=== PATIENT | male | born 1955 | race Caucasian/White ===

== ENCOUNTER 2018-09-09 20:38 | Emergency (ER) | payer OTHER ==
[~2018-09-09] VITALS: Ht 165.1 cm; Wt 65.8 kg
--- NOTE | 2018-09-09 23:39 | EKG ---
[facility] [address] [place] [address] Signed Sinus bradycardia Septal infarct , age undetermined Abnormal ECG No previous ECGs available Confirmed by EDWARD RITTER MD ([id number] on 09/09/2018 11:39:33 PM Electronically Signed By: EDWARD RITTER MD 09/09/18 2339 PATIENT NAME: MARIELENA DAWN Electrocardiogram DATE OF : 51 PHYSICIAN: EDWARD RITTER MD REPORT #: [id number] REPORT IS CONFIDENTIAL AND NOT TO BE RELEASED WITHOUT AUTHORIZATION
== END 2018-09-10 00:10 | disposition short-term general hospital (02) ==
LOC: ED 20:38
DX: C76.0 Malignant neoplasm of head, face and neck (principal); Z51.81 Encounter for therapeutic drug level monitoring
CPT/HCPCS: 70450; 70491; 71045; 80053; 85025; 85610; 85730; 93005; 93010; 99285-25; J7030; Q9967